=== PATIENT | female | born 1985 | race Caucasian/White ===

== ENCOUNTER → 2023-08-07 12:58 | Outpatient (REF) | payer OTHER, SELFPAY | LOC: HWWDC 12:58 | PROVIDERS: ATTENDING PHYSICIAN Internal Medicine | DX: Z12.31 Encounter for screening mammogram for malignant neoplasm of breast (principal) | CPT/HCPCS: 77063; 77067 ==

== ENCOUNTER → 2023-08-15 09:58 | Outpatient (REF) | payer OTHER, SELFPAY | LOC: WDC 09:58 | PROVIDERS: ATTENDING PHYSICIAN Internal Medicine | DX: R92.8 Other abnormal and inconclusive findings on diagnostic imaging of breast (principal) | CPT/HCPCS: 76642 ==

== ENCOUNTER → 2024-04-06 08:26 | Outpatient (REF) | payer OTHER, SELFPAY | LOC: WDC 08:26 | PROVIDERS: ATTENDING PHYSICIAN Internal Medicine | DX: R92.8 Other abnormal and inconclusive findings on diagnostic imaging of breast (principal) | CPT/HCPCS: 76642; 77061; 77065 ==

== ENCOUNTER → 2024-11-12 11:05 | Outpatient (REF) | payer OTHER, SELFPAY | LOC: HWWDC 11:05 | PROVIDERS: ATTENDING PHYSICIAN Internal Medicine | DX: Z12.31 Encounter for screening mammogram for malignant neoplasm of breast (principal) | CPT/HCPCS: 77063; 77067 ==